=== PATIENT | male | born 1945 | race Caucasian/White ===

== ENCOUNTER → 2017-11-12 | Outpatient (CLI) | payer BC, MEDICARE ==
--- NOTE | 2017-11-12 16:43 | CONS ---
CONSULTATION Consultation for sleep apnea. HISTORY OF PRESENT ILLNESS: 72-year-old male patient, referred to me for evaluation of sleep apnea. Recently the patient underwent a nocturnal oxygen analysis and he was found to have approximately 43% of sleep time spending with the pulse ox less than 90%. This further raised the suspicion of obstructive sleep apnea. He does snore very loudly. He goes to bed around 11:30 p.m., wakes up 7:00 am in the morning. He averages around 7-8 hours of sleep and he feels tired and fatigued during the day. He does not take any naps. His current [place] score is 1. He has been and as such, we are not sure if he has any witnessed apneas. He denies having any choking or gasping sensation at nighttime. No nocturia. No sleep paralysis. No hallucinations or cataplexy. No restlessness in lower extremities or any symptoms of restless legs syndrome. PAST MEDICAL HISTORY: 1. Coronary artery disease. 2. Peripheral vascular disease with previous fem-fem bypass surgery 1998. 3. Hyperlipidemia. 4. BPH. 5. Diabetes mellitus. PAST SURGICAL HISTORY: Includes a fem-fem bypass surgery back in 1998. DRUG ALLERGIES: Not known. OUTPATIENT MEDICATION: Includes Flomax 0.4 daily, Hytrin 2 mg p.o. daily, Levemir 30 units a day. Metformin 1 g twice a day, cilostazol 100 mg p.o. daily, Lipitor 20 mg p.o. daily. Januvia 100 mg p.o. daily. Aspirin 81 mg p.o. daily, lisinopril 2.5 mg p.o. daily. SOCIAL HISTORY: Nonsmoker, no history of alcohol. No history of IV drugs. FAMILY HISTORY: Noncontributory. Negative for sleep apnea. REVIEW OF SYSTEMS: 12-point review of system was done. Positive findings are mentioned in history of present illness. Otherwise negative. The patient does not have any insomnia. He has difficulty sleeping in places such as hotels or anywhere else of outside his home setting or bedroom setting. No choking or gasping sensation. No restlessness in lower extremities. No sleepwalking. No sweating. No heartburn. No palpitations. No panic attacks. No grinding of the teeth. No problems with memory or concentration. No problems with attention span. No sexual dysfunction. No anxiety or claustrophobia. PHYSICAL EXAMINATION: BP is 156/72, pulse 76, respirations 16, temperature 97.7, saturation 96% on room air. Weight is 229. Height is 5 feet 11 inches and neck size 17-1/2 inches. GENERAL APPEARANCE: Calm, comfortable. Head is atraumatic, normocephalic. Neck is short, supple. Crowding of posterior pharynx. There is no goiter or neck masses. LUNGS: Diminished breath sounds bilaterally otherwise clear. HEART: Sounds regular rhythm. Normal S1, S2. No S3. No murmurs. ABDOMEN: Soft, nontender. No organomegaly. EXTREMITIES: No edema. No cyanosis or clubbing. NEUROLOGIC: Alert and oriented x3. No focal neurological deficits. PSYCHIATRIC: Negative for anxiety or depression. IMPRESSION: 1. Obstructive sleep apnea clinically suspected, currently under investigation. 2. Loud snoring. 3. Nocturnal oxygen desaturation as evident on recent nocturnal oximetry analysis. 4. Diabetes mellitus. 5. Coronary disease. 6. Peripheral vascular disease. 7. Hyperlipidemia. 8. Benign prostatic hypertrophy. PLAN: 1. Encourage weight loss. 2. Sleep in a sidewise body position. 3. Implement good sleep hygiene measures. 4. Proceed with a home sleep study as a screening tool for any form of sleep breathing disorder or obstructive sleep apnea. 5. Continue to follow. MMODL / IJN: [id number] /
== END | disposition home or self-care (01) ==
LOC: SLEEP 15:18
PROVIDERS: ATTEND Internal Medicine Critical Care Medicine
DX: G47.33 Obstructive sleep apnea (adult) (pediatric) (principal); Z53.9 Procedure and treatment not carried out, unspecified reason

== ENCOUNTER → 2018-02-11 | Outpatient (CLI) | payer MEDICARE ==
--- NOTE | 2018-02-11 19:48 | PN ---
PROGRESS NOTE Byron is a 72-year-old male patient coming in for a compliancy check regarding his new CPAP unit. The patient was diagnosed having obstructive sleep apnea based on a home sleep study that was conducted. The patient was found to have symptomatic LISANDRA with an AHI of 18.6, worse in the supine body position. He is known to have coronary artery disease, peripheral vascular disease, hyperlipidemia, hypertension, and he is also obese. The patient is currently using an APAP unit. The patient is doing well. He is very happy with his overall clinical response. He is waking up refreshed and alert during the day. No hypersomnia or sleepiness during the day. He is reporting significant improvement in his sleep quality in general. I reviewed his compliance data. The patient's AHI on treatment is down to 1.4. He has been utilizing CPAP more than 4 hours 87% of the time. Average CPAP use is around 7 hours and 59 minutes. The leak factor is 24 L/minute. His sat pressure is at 9. REVIEW OF SYSTEMS: Twelve-point review of systems was done. Positive findings were all mentioned above in the history of present illness. The patient has no specific complaints. His treatment remains quite successful. PHYSICAL EXAMINATION: BP is 110/59, pulse 64, respirations 16, temperature 97.3, saturation 95% on room air. Weight is 242. GENERAL APPEARANCE: Calm, comfortable. Head is atraumatic, normocephalic. NECK: Supple. No JVD. No goiter or neck masses. LUNGS: Clear to auscultation. HEART: Heart sounds are regular rate and rhythm. Normal S1, S2. No S3, S4. No murmurs. ABDOMEN: Soft, nontender. No organomegaly. EXTREMITIES: No edema. No cyanosis or clubbing. NEUROLOGIC: Alert and oriented x3. There is no focal neurological deficit. PSYCHIATRIC: Negative for anxiety or depression. IMPRESSION: 1. Obstructive sleep apnea, severe, with apnea/hypopnea index of 18.6, currently on CPAP pressure of 9 cm. Treatment is successful. The patient is benefitting from treatment with much improvement in his sleep quality, and he has demonstrated adequate compliancy. 2. Coronary artery disease. 3. Peripheral vascular disease. 4. Hyperlipidemia. 5. Hypertension. 6. Obesity. PLAN: 1. Encourage weight loss. 2. Continue CPAP at same level of pressure. 3. Treatment is successful and the patient benefits from treatment. The patient is compliant. See me back in a year's time in followup, earlier if needed. MMODL / IJN: [id number] /
== END | disposition home or self-care (01) ==
LOC: SLEEP 14:48
PROVIDERS: ATTEND Internal Medicine Critical Care Medicine
DX: G47.33 Obstructive sleep apnea (adult) (pediatric) (principal); I25.10 Atherosclerotic heart disease of native coronary artery without angina pectoris; I73.9 Peripheral vascular disease, unspecified; E78.5 Hyperlipidemia, unspecified; I10 Essential (primary) hypertension; E66.9 Obesity, unspecified; Z99.89 Dependence on other enabling machines and devices

== ENCOUNTER → 2019-07-07 | Outpatient (CLI) | payer MEDICARE ==
--- NOTE | 2019-07-07 22:06 | PN ---
PROGRESS NOTE Byron is coming in for annual check regarding obstructive sleep apnea. He is 73 years of age. Has been on CPAP therapy for quite some time. The patient has been successfully treated regarding his sleep apnea. His disease is moderately severe, with an AHI of 18.6. He is also known to have coronary artery disease, peripheral vascular disease, hypertension, hyperlipidemia and he is also obese. In terms of his weight, the patient has not been able to lose any weight. In fact, he has gained around 14 pounds since his last evaluation. Compliance data looks excellent. He has been averaging around 9.3 hours of CPAP use per night and CPAP use for more than 4 hours 100% with peak of 22 L/minutes. AHI is down to 0.7. Otherwise, the patient denies having any new onset of medical problems and comorbidities. He is diabetic and is on insulin. He is able to urinate well and gets up probably once in the middle of night for urination and he is on Flomax. He is also on Lipitor for hyperlipidemia. Lisinopril for blood pressure control. REVIEW OF SYSTEMS: Fourteen-point review of system was done. Positive findings are mentioned in history of present illness. PHYSICAL EXAMINATION: BP is 141/69, pulse 63, respirations 16, temperature 97.2, saturation 92% on room air. [place] score 0. BMI 35.3, weight is 258, height is 5 feet 11 inches. General appearance: Calm and comfortable. Head is atraumatic, normocephalic. NECK: Supple. No JVD. No goiter. No neck mass. Mallampati class IV. LUNGS: Clear to auscultation. HEART: Heart sounds are regular rate and rhythm. Normal S1, S2. No S3, S4. No murmurs. ABDOMEN: Soft, nontender. No organomegaly. EXTREMITIES: No edema. No cyanosis or clubbing. IMPRESSION: 1. Obstructive sleep apnea. Moderate severe with an AHI of 18.6, currently on CPAP therapy with successful clinical response and compliance. 2. Obesity with interval weight gain. 3. Hypersomnia, improved [place] score is down to 0. 4. Diabetes mellitus. 5. Hypertension. 6. Hyperlipidemia. 7. Benign prostatic hypertrophy. PLAN: 1. Encourage weight loss. 2. Continue CPAP therapy at some level of pressure. 3. Renew the patient's supplies including the DreamWear under nose fullface mask. 4. See me back in a few years time in followup, earlier if needed. MMODL / IJN: [id number] /
== END | disposition home or self-care (01) ==
LOC: SLEEP 14:21
PROVIDERS: ATTEND Internal Medicine Critical Care Medicine
DX: G47.33 Obstructive sleep apnea (adult) (pediatric) (principal); E11.9 Type 2 diabetes mellitus without complications; I10 Essential (primary) hypertension; E78.5 Hyperlipidemia, unspecified; N40.0 Benign prostatic hyperplasia without lower urinary tract symptoms; E66.9 Obesity, unspecified; Z68.35 Body mass index [BMI] 35.0-35.9, adult; Z99.89 Dependence on other enabling machines and devices

== ENCOUNTER → 2020-10-25 | Outpatient (CLI) | payer MEDICARE ==
--- NOTE | 2020-10-25 15:07 | PN ---
PROGRESS NOTE A 75-year-old male patient with known history of obstructive sleep apnea. The patient is known to have moderate severe disease with an AHI of 18.6. The patient is also known to have several comorbidities including CAD, peripheral vascular disease, hypertension, hyperlipidemia. The patient is also obese. He has lost weight since his last evaluation. He has lost approximately 15 pounds. He used to weigh 258 and he currently he is down to 243. Since then, he has come off the insulin. He is also off the Januvia. He has received his COVID-19 vaccination. He is doing well. I checked the compliance data on his machine. His CPAP pressure is at 9 cm of water and he has a ResMed AutoSet unit. Based on the compliance data over the past 30 days, the patient utilized his machine every night. His AHI is down to 0.9. Leak is in order of 28 L/minute. He is using a full-face mask wearing under the nose large size. No complaints. No hypersomnia or sleepiness. In fact, he has also both a mini CPAP and I checked the setting on that machine and that machine was set on an APAP mode at a pressure minimum of 5, maximum of 15 with a starting pressure of 4 and a ramp time of 20 minutes. MEDICATION LIST: Includes Flomax 0.4 mg p.o. q. day, lisinopril 2.5 mg p.o. daily, metformin 1 g daily, aspirin 81 mg p.o. daily, Lipitor 80 daily, Hytrin 30 daily, multivitamin 1 tablet a day, vitamin D3, fish oil and calcium. REVIEW OF SYSTEMS: Fourteen-point review of system was done and positive findings are mentioned in history of present illness. PHYSICAL EXAMINATION: BP is 121/69, pulse 64, respirations 18, temperature is 95.7, saturation 99% on room air. Kirkman score is at 4. BMI 33.8. Weight is 243. GENERAL APPEARANCE: Obese, calm, comfortable. HEAD: Atraumatic, normocephalic. NECK: Supple, there is no JVD. No goiter or neck mass. Mallampati class 4. LUNGS: Diminished, otherwise clear. HEART: Heart sounds are regular normal S1, S2. No S3, S4. No murmurs. ABDOMEN: Soft, nontender. No organomegaly. EXTREMITIES: No edema no cyanosis or clubbing. NEUROLOGIC: The patient is awake and alert there is no focal neurological deficit. IMPRESSION: 1. Symptomatic obstructive sleep apnea moderate in severity AHI of 18.6 successfully being treated with a CPAP pressure of 9 cm of water. 2. Hypersomnia, improved. Current Kirkman score is down to 4. 3. BPH. 4. Hypertension. 5. Diabetes mellitus, currently off insulin off Januvia, currently on metformin. 6. Coronary artery disease. 7. Vascular disease. PLAN: 1. Encourage further weight loss. 2. Keep same CPAP pressure settings. 3. Diminished CPAP which is a portable unit was adjusted to the APAP mode at a pressure minimum of 5, maximum of 15 and I think that is reasonable. If wants to go to a fixed pressure, the idea of pressure port as the patient will need a pressure of 9 cm of water. 4. Encouraged weight loss. 5. Symptomatic good sleep hygiene measures. 6. See me back in a year's time in followup. NIKKI / ZHOUN: [id number] /
== END ==
LOC: SLEEP 13:55
PROVIDERS: ATTEND Internal Medicine Critical Care Medicine
DX: G47.33 Obstructive sleep apnea (adult) (pediatric) (principal); N40.0 Benign prostatic hyperplasia without lower urinary tract symptoms; I10 Essential (primary) hypertension; E11.9 Type 2 diabetes mellitus without complications; I25.10 Atherosclerotic heart disease of native coronary artery without angina pectoris; Z79.82 Long term (current) use of aspirin; Z79.84 Long term (current) use of oral hypoglycemic drugs; Z79.899 Other long term (current) drug therapy; E66.9 Obesity, unspecified; Z68.33 Body mass index [BMI] 33.0-33.9, adult

== ENCOUNTER → 2021-11-07 | Outpatient (CLI) | payer MEDICARE ==
--- NOTE | 2021-11-07 15:25 | P.PN ---
Subjective Progress Note Date: 11/07/21 76-year-old male patient is coming in for an annual check regarding his obstructive sleep apnea. The patient has moderate severe disease and the patient has an AHI of 18.6 at baseline and the patient is using a CPAP machine at a pressure of 9 cm of water. The patient's treatment is Nexium successful. No issues. I checked a compliancy data from the machine and the patient utilizing the machine every night without interruption and the patient is using the machine 100% of time averaging 8.8 hours of CPAP use per night. His AHI is down to 0.8. His Patel's order of 20 L per minute. He is using a large-sized dreamware fullface mask. No recent weight gain. His weight has remained stable. No nighttime chest pain or shortness of breath. No cough or sputum production. He remains comfortable. No hypersomnia during the day. Does not take any naps. Occasionally wakes up in the Middle of Night for Urination. He Takes Flomax. Objective - Exam BP is 114/72 with a pulse of 76 aspiration of 20 temperature is 96.3 and oxygen saturation 97% on room air oxygen. The patient's body mass index of 34.9. Weight is 254. Gary score is at 0. The patient appeared well nourished and normally developed. Vital signs as documented. Head exam is unremarkable. No scleral icterus or corneal arcus noted. Neck is without jugular venous distension, thyromegaly, or carotid bruits. Carotid upstrokes are brisk bilaterally. Lungs are clear to auscultation and percussion. Cardiac exam reveals the PMI to be normally sized and situated. Rhythm is regular. First and second heart sounds normal. No murmurs, rubs or gallops. Abdominal exam reveals normal bowel sounds, no masses, no organomegaly and no aortic enlargement. Extremities are nonedematous and both femoral and pedal pulses are normal. Examination of the skin revealed no evidence of s ignificant rashes, suspicious appearing nevi or other concerning lesions.Neurologically, the patient is awake and alert and the patient does not have any focal neurological deficit. Cranial nerves are essentially intact. Assessment and Plan Plan: Obstructive sleep apnea, AHI of 18.6 and the patient was successfully treated with CPAP therapy at a pressure of 9 cm of water. Compliance data was checked Chronic hypersomnia, recovered and the patient Gary score is down to 0 Diabetes mellitus Hypertension BPH Coronary artery disease Peripheral artery disease Plan Continue CPAP therapy at the same level of pressure The patient has a functioning machine We will refill the supplies including the dreamware fullface mask large size and a large size headgear Replaced the filters Use heated tubing Encourage weight loss Continue optimizing the patient's comorbidities We'll continue to follow
== END ==
LOC: SLEEP 13:56
PROVIDERS: ATTEND Internal Medicine Critical Care Medicine
DX: G47.33 Obstructive sleep apnea (adult) (pediatric) (principal); E11.9 Type 2 diabetes mellitus without complications; I10 Essential (primary) hypertension; Z99.89 Dependence on other enabling machines and devices; N40.0 Benign prostatic hyperplasia without lower urinary tract symptoms; I25.10 Atherosclerotic heart disease of native coronary artery without angina pectoris; I73.9 Peripheral vascular disease, unspecified

== ENCOUNTER → 2024-02-04 | Outpatient (CLI) | payer MEDICARE ==
[2024-02-04 13:20] VITALS: BP 92/53; PULSE 84; RESP 16; TEMP 97.5
--- NOTE | 2024-02-04 14:25 | P.PN ---
Progress Note - Text Progress Note Date: 02/04/24 This is a 78-year-old male patient, who is being seen at the sleep center in follow-up regarding his obstructive sleep apnea. As of June 2023, the patient has been experiencing excessive fatigue without major sleepiness. Based on that, the patient was asked to come in and see me for a follow-up to decide if there is any ongoing issues with his sleep quality affecting the patient's daytime fatigue and functionality. Noted approximately 4 to 5 months back, the patient's was doubled up on his blood pressure medication. Is currently running a low blood pressure. He was also started on Mounjaro for weight loss at 5 mg injections every 1 week. Rest of the medications remain unchanged. I noted that his blood pressure currently is low running at 92/53. No significant tachycardia. No weight gain or weight loss. This patient was diagnosed having obstructive sleep apnea which is moderately severe with an AHI of 18.6 and the patient has been successfully treated with CPAP therapy. The patient is currently utilizing a ResMed 11 CPAP unit which is set at a pressure of 9 cm of water. Based on the compliance data that is not elective and his machine, the patient has been averaging around 11.4 hours of CPAP use per night and the leak is in order of 26 L/min and the patient is AHI is down to 0.4. He goes to bed around 11 PM and wakes up 11 AM in the morning. Does not take any naps during the day. No sleep fragmentation. The patient has no snoring while on CPAP therapy. He continues to have issues with the brain fog when he wakes up in the morning and he feels not refreshed and occasionally gets dizziness while standing. No restlessness in lower extremities. No sleepwalking. No sleep talking. No grinding. No increased anxiety or depression. No other complaints otherwise for now Medication includes terazosin 5 mg p.o. daily, lisinopril 40 mg p.o. daily, am lodipine 5 mg p.o. daily, Eliquis 5 mg twice a day, metformin 1 g twice a day, Lipitor 20 mg p.o. daily, topiramate 50 mg p.o. twice a day, omeprazole 40 mg p.o. daily, aspirin 81 mg p.o. daily and Mounjaro injections 5 mg. Vitals His temperature is 97 0.5, BP is 92/53, pulse is 84 with a respiration of 16 and body mass index is 35.2 and the weight is 253. The patient appeared well nourished and normally developed. Vital signs as documented. Head exam is unremarkable. No scleral icterus or corneal arcus noted. Neck is without jugular venous distension, thyromegaly, or carotid bruits. Carot id upstrokes are brisk bilaterally. Lungs are clear to auscultation and percussion. Cardiac exam reveals the PMI to be normally sized and situated. Rhythm is regular. First and second heart sounds normal. No murmurs, rubs or gallops. Abdominal exam reveals normal bowel sounds, no masses, no organomegaly and no aortic enlargement. Extremities are nonedematous and both femoral and pedal pulses are normal. Examination of the skin revealed no evidence of significant rashes, suspicious appearing nevi or other concerning lesions. Neurologically, the patient is awake and alert and the patient does not have any focal neurological deficit. Cranial nerves are essentially intact. Assessment Obstructive sleep apnea, moderate in severity with an AHI of 18. The patient is successfully treated with a CPAP pressure of 9 cm of water. Excellent compliancy. Excellent clinical response. AHI while on treatment is down to 0.4 Chronic hypersomnia, improved and the patient's current [place] score is 0 New onset fatigue, exact cause is not clear. Unlikely to be related to obstructive sleep apnea. Other possibilities include ongoing issues with overmedication and hypotension, also consider other possibilities such as pacemaker dysfunction and drug-induced fatigue as the patient was started on Mounjaro at the time of onset of those symptoms. Aortic stenosis status post TAVR procedure History of pacemaker insertion post TAVR procedure Diabetes mellitus type 2 Hypertension Coronary disease PAD BPH Plan Patient was discharged home sleep apnea standpoint. Continue the same treatment for now. The patient will be kept on the same CPAP pressure which is 9 cm of water. Advised following up with cardiology. Consider stepping down his antihypertensive medication as the patient seems to be chronically hypotensive and is having some issues with orthostasis and positional dizziness. Other possibilities include drug-induced fatigue including Mounjaro. Pacemaker check needs to be done by cardiology. No change in his CPAP pressure setting for now. The patient is to see me back in a years time in follow-up.
== END ==
LOC: 3 N SLEEP 13:04
PROVIDERS: ATTEND Internal Medicine Critical Care Medicine
CPT/HCPCS: 99212